=== PATIENT | female | born 1950 | race Caucasian/White ===

== ENCOUNTER → 2022-06-11 | Outpatient (CLI) | payer MEDICARE | END | disposition home or self-care (01) | LOC: RAH 12:22 | PROVIDERS: ATTEND Internal Medicine Gastroenterology | DX: R13.12 Dysphagia, oropharyngeal phase (principal); R63.30 Feeding difficulties, unspecified | CPT/HCPCS: 74230; 92611 ==

== ENCOUNTER → 2022-06-13 | Outpatient (CLI) | payer MEDICARE ==
[2022-06-13 09:15] LABS: BASOPHILS % (AUTO) 0.4 % (0.0-5.0); EOSINOPHILS % (AUTO) 1.6 % (0.0-8.0); HEMATOCRIT 37.4 % (36-48); LYMPHOCYTES % (AUTO) 19.2 % (21.0-51.0); MEAN CORPUSCULAR HEMOGLOBIN 29.4 pg (27.0-33.0); MEAN CORPUSCULAR HGB CONC 32.1 g/dL (32.0-36.0); MEAN CORPUSCULAR VOLUME 91.7 fL (79-99); MONOCYTES % (AUTO) 8.5 % (3.0-13.0); NEUTROPHILS % (AUTO) 69.8 % (40.0-77.0); PLATELET COUNT (AUTO) 222 K/uL (130-400); RED BLOOD CELL COUNT(AUTO) 4.08 MIL/uL (4.00-5.50); RED CELL DISTRIBUTION WIDTH 14.1 % (11.0-15.5); WHITE BLOOD COUNT (AUTO) 8.2 K/uL (4.8-10.8)
[2022-06-13 09:26] LABS: INR 0.93 (0.85-1.15); PROTHROMBIN TIME 9.7 SEC (9.6-11.6)
[2022-06-13 09:27] LABS: PARTIAL THROMBOPLASTIN TIME 25.9 SEC (26.3-35.5)
== END | disposition home or self-care (01) ==
LOC: RAH 08:36 → EDUNIT# 09:00
PROVIDERS: ATTEND Internal Medicine Gastroenterology
DX: K44.9 Diaphragmatic hernia without obstruction or gangrene (principal); K22.2 Esophageal obstruction; K92.1 Melena; R13.10 Dysphagia, unspecified; Z20.822 Contact with and (suspected) exposure to COVID-19
CPT/HCPCS: 36415; 74240; 85025; 85610; 85730; 87426